=== PATIENT | male | born 1965 | race Caucasian/White ===

== ENCOUNTER 2017-09-19 10:39 | Inpatient (IN) | payer OTHER ==
--- NOTE | 2017-09-16 08:36 | HPE ---
DATE OF ADMISSION: 09/19/2017 ATTENDING PHYSICIAN: Dr. Rao CHIEF COMPLAINT: Neck pain, pain radiating to his upper extremities. HISTORY: This a pleasant 52-year-old male patient with ongoing neck pain related to a work-related incident. He continues have pain with normal day-to-day activities who has failed to improve with conservative management to include therapy and injections. He continues have troubles with normal day-to-day activities and work-related activities. Mainly gets numbness and tingling to his right upper extremity, occasionally into his left upper extremity. Has increased pain and symptoms in his upper extremities with neck range of motion. He has elected for surgery for his continued symptoms. He has consented for an anterior cervical decompression and fusion C4-5 and C5-[address] Rao with the use of iliac crest graft. X-rays of his cervical spine notable for degenerative changes most significant at C4-5 and C5-6, and a lesser degree at C3-4 and C6-7. MRI is notable for moderate cord deformity at C5-6, lesser degree at C4-5. There is spinal stenosis at C5-6. There are degenerative changes at C3-4 and C6-7. Medical optimization Mary Eli. ALLERGIES: NO KNOWN DRUG ALLERGIES. CURRENT MEDICATIONS: - duloxetine 30 mg one tablet at bedtime - gabapentin 300 mg one tablet twice a day - tizanidine 4 mg one tablet three times a day as needed - Prilosec 20 mg one tablet once per day - Benicar 40 mg one tablet once per day - Zyrtec 10 mg one tablet once a day as needed - metoprolol 25 mg one tablet once per day - aspirin 325 mg one tablet every day (He will discontinue that 4-5 days prior to surgery.) - Lipitor 10 mg one tablet once per day - xnzs-epd-xiytbhj vitamin D - mncu-vzf-eoqrdtd allergy relief with Sudafed - He also takes cilostazol 50 mg one tablet twice a day (He will discontinue that today.) MEDICAL HISTORY: Includes hypertension, elevated lipids, peripheral artery occlusion disease, cervical spinal stenosis, cervical degenerative disc disease, upper extremity radiculopathy. Exam today reveals alert, well-nourished, well-developed male patient. Neck is supple without adenopathy or jugular venous distention (JVD). Spurling's is positive on exam. The skin is intact around the neck. Vazquez's is negative. Deep tendon reflexes are trace in the upper extremities. Lungs are clear to auscultation without rales or wheeze. Heart regular rate and rhythm. Abdomen: Bowel sounds are present. His gait is not wide-based. Additional studies: Nerve conduction studies notable for an old right-sided C6-7 radiculopathy noted on his nerve studies. Current vital signs: Weight 200 pounds. Height 5 foot 11. Temperature 99.0. Blood pressure 120/70. Pulse 120. Respirations 18. REVIEW OF SYSTEMS: Denies any recent urinary tract infection (UTI) symptoms. Denies loss of bowel or bladder control. He has noted last night he did have one shaking chill but he has not noted any cough and no discharge from his nose and no productive cough. No chest pain. No shortness breath. No difficulty breathing. He has felt warm all day. Denies any nausea or vomiting. Persistent pain in his neck that radiates mainly into his right upper extremity but also, occasionally into his left upper extremity. SOCIAL HISTORY: He has continued to work on quitting smoking. He plans to quit smoking today. He does occasionally use alcohol. 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 LABORATORY DATA: Hemoglobin 17. Glucose 119. BUN 15. Creatinine 1.5. Sodium 136. Potassium 4.2. PAST SURGICAL HISTORY: Includes a hernia repair, tonsillectomy, bilateral hip surgery and atrial bypass surgery. IMPRESSION: Cervical spinal stenosis and cervical degenerative disc disease, upper extremity radiculopathy related to a work-related incident. PLAN: He has consented for an anterior cervical decompression and fusion C4-5, C5-6 with the use of iliac crest graft and titanium cages by Dr. Roa.
[~2017-09-19] VITALS: Ht 180.3 cm; Wt 95.1 kg
[~2017-09-19 10:39] MED LIST: /CELE20CA OR; /DULO30CA OR; /LOR25TA PO; /PREG50CA PO; ASPI1TAB20 PO; ASPI81TA21 PO; BENI20TA11 OR; CETI10TA OR; CILO50TA PO; CLOTR1CR TOP; DULO1CAP2 PO; GABA-282 PO; HYDR-2808 PO; METH750T OR; METO1TAB32 PO; METO50TA4 OR; NABUMETONE PO; OMEP20TA7 OR; OXYC5CAP2 PO; TIZA2TA PO; TRAM50TA2 OR; VITA1CAP40 PO; [UNRECOGNIZED DRUG - CODE] TOP
[2017-09-19] MEDS ORDERED: PREGABALIN 75 MG CAP(LYRICA) PO ONE (11:00)
[2017-09-19] MEDS ORDERED: PERCOCET 5MG/325MG TAB PO ONE (11:00)
[2017-09-19] MEDS ORDERED: LR 1,000 ML IV ONE (11:00)
[2017-09-19] MEDS ORDERED: LIDOCAINE 1% MDV 20ML VIAL SQ PRN (11:00)
[2017-09-19] MEDS ORDERED: BUPIVACAINE/EPIN 0.25% 30 ML VIAL As Ordered ONE (15:38)
[2017-09-19] MEDS ORDERED: THROMBIN SOLN 20,000 UNITS KIT As Ordered ONE (15:38)
[2017-09-19] MEDS ORDERED: LIDOCAINE W/EPINEPHRINE 1% 20ML VIAL As Ordered ONE (15:39)
[2017-09-19] MEDS ORDERED: BACITRACIN PWD 50,000 UNITS VIAL As Ordered ONE (15:39)
[2017-09-19] MEDS ORDERED: MIDAZOLAM INJ 2 MG/2 ML VIAL (J2250) As Ordered ONE (16:08)
[2017-09-19] MEDS ORDERED: fentaNYL 250 MCG/5 ML INJECTION (J3010) As Ordered ONE (16:08)
[2017-09-19] MEDS ORDERED: PROPOFOL 200 MG/20 ML VIAL As Ordered ONE (16:44)
[2017-09-19] MEDS ORDERED: LIDOCAINE 2% INJ 100 MG/5 ML SDV (FOR ANES.) As Ordered ONE (16:45)
[2017-09-19] MEDS ORDERED: ONDANSETRON 4MG/2ML VIAL (J2405) As Ordered ONE (16:45)
[2017-09-19] MEDS ORDERED: PHENYLephrine HCL 500 MCG/5 ML (100MCG/ML) SYRINGE (J2370) As Ordered ONE (16:45)
[2017-09-19] MEDS ORDERED: NEOSTIGMINE 10 MG/10 ML VIAL (J2710) As Ordered ONE (16:45)
[2017-09-19] MEDS ORDERED: GLYCOPYRROLATE INJ 0.2 MG/ML 2 ML VIAL As Ordered ONE (16:45)
[2017-09-19] MEDS ORDERED: METOCLOPRAMIDE INJ 10MG/2ML VIAL (J2765) As Ordered ONE (16:45)
[2017-09-19] MEDS ORDERED: PHENYLEPHRINE INJ 10MG/ML VIAL (J2370) As Ordered ONE (16:52)
[2017-09-19] MEDS ORDERED: ROCURONIUM BROMIDE 50 MG/5 ML VIAL/SYRINGE As Ordered ONE (17:57)
--- NOTE | 2017-09-19 19:24 | REP ---
Cervical spine: Intraoperative, two views. History: Fusion. Findings: Initial lateral cross-table radiograph time stamped 5:41 p.m. demonstrates orotracheal tube in place and a metallic intraoperative probe at the anterior aspect of this C5-6 intervertebral disc. A second film time stamped 7:09 p.m. demonstrates ventral discectomy and fusion plating across the C4-5 and C5-6 intervertebral discs in good position. Signed by Conrado Richardson MD 09/19/2017 07:49 P
[2017-09-19] MEDS ORDERED: MORPHINE 2 MG/ML 1ML SYRINGE IV PRN (19:45)
[2017-09-19] MEDS ORDERED: ONDANSETRON 4MG/2ML VIAL (J2405) IV PRN (19:45)
[2017-09-19] MEDS ORDERED: PERCOCET 5MG/325MG TAB PO PRN (19:45)
[2017-09-19] MEDS ORDERED: tiZANidine 4 MG TAB PO PRN (19:45)
[2017-09-19] MEDS ORDERED: LR 1,000 ML IV SCH (19:45)
[2017-09-19] MEDS ORDERED: fentaNYL 100 MCG/2 ML INJECTION (J3010) IV PRN (19:45)
[2017-09-19] MEDS ORDERED: ACETAMINOPHEN TAB 650MG DOSE (2X325MG) PO PRN (19:45)
[2017-09-19] MEDS ORDERED: D5W/0.45% SODIUM CHLORIDE 1,000 ML IV SCH (19:45)
[2017-09-19] MEDS ORDERED: PROMETHAZINE INJ 25 MG/ML VIAL (J2550) IV PRN (19:45)
[2017-09-19] MEDS ORDERED: HYDROmorphone HCL 1 MG/ML SYRINGE (J1170) IV PRN (20:00)
[2017-09-19 20:30] VITALS: BP 142/80
[2017-09-19] MEDS: GABAPENTIN 300 MG CAP PO SCH (21:00)
[2017-09-19 21:30] VITALS: BP 137/72
[2017-09-19 22:30] VITALS: BP 138/70
[2017-09-19 23:30] VITALS: BP 135/68
[2017-09-20] MEDS: PERCOCET 5MG/325MG TAB PO PRN ×3 (01:12→10:29)
[2017-09-20 02:00] VITALS: BP 152/75
[2017-09-20 06:00] VITALS: BP 150/68
[2017-09-20] MEDS ORDERED: PERC5TAB12 PO (08:04)
[2017-09-20] MEDS: GABAPENTIN 300 MG CAP PO SCH (08:44)
[2017-09-20 08:47] VITALS: BP 150/68
[2017-09-20] MEDS ORDERED: ASPIRIN 325 MG TAB PO SCH (09:00)
[2017-09-20] MEDS ORDERED: OLMESARTAN MEDOXOMIL 20 MG TAB (BENICAR) PO SCH (09:00)
[2017-09-20] MEDS ORDERED: METAMUCIL (PSYLLIUM) PACKET PO SCH (09:00)
[2017-09-20] MEDS ORDERED: ASCORBIC ACID 500 MG TAB PO SCH (09:00)
[2017-09-20] MEDS ORDERED: METOPROLOL SUCC *XL* 25MG TAB (TopROL *XL*) PO SCH (09:00)
[2017-09-20] MEDS ORDERED: CETIRIZINE (ZyrTEC) 10 MG TAB PO SCH (09:00)
[2017-09-20] MEDS ORDERED: OMEPRAZOLE 20 MG CAP PO SCH (09:00)
[2017-09-20] MEDS ORDERED: ATORVASTATIN 10 MG TAB PO SCH (09:00)
--- NOTE | 2017-09-20 17:45 | RO ---
DATE OF PROCEDURE: 09/19/2017 PREOPERATIVE DIAGNOSIS: Cervical spinal stenosis with right upper extremity radiculopathy and question of myelopathy, defective levels include C5-6 worse level and C4-5. POSTOPERATIVE DIAGNOSIS: Cervical spinal stenosis with right upper extremity radiculopathy and question of myelopathy, defective levels include C5-6 worse level and C4-5. PROCEDURE Anterior cervical decompression and fusion at C5-6 including decompression of the thecal sac and nerve roots and debridement and squaring of the endplates, election of bone graft, removal of the uncinate processes in preparation for fusion, included the removal of the posterior longitudinal ligament, additional level C4-5, application of intervertebral interbody mechanical device at C5-6 and C4-5, harvest and use of local autograft for spine surgery at C5-6 and C4-5, application of anterior cervical instrumentation, three segments, C4, C5 and C6. SURGEON: Dr. Minh Rao [employer] MANAGER: Siddharth Thompson, KIM ANESTHESIA: General. ESTIMATED BLOOD LOSS: Less than 15 mL, replaced with crystalloid. No complications. INDICATIONS: Discomfort radiating into the right upper extremity, neck discomfort, severe cervical spinal stenosis appreciable on MRI at C5-6 and to a lesser degree C4-5. The patient has elected for operative intervention. Consent reviewed in detail with the patient, including a amish discussion of the pathology involved, the procedure proposed, alternatives including doing nothing , risks including but not limited to pain, failure, infection, bleeding blood loss , incomplete relief of symptoms, need for additional surgery, swallowing trouble, hoarseness and other issues. I specifically talked with the patient about the need to continue to be cigarette free. COMPONENTS USED: Include the 4 cross titanium cage system, size 6 nonlordotic utilized at C6-7, size 6 nonlordotic utilized at C5-6, and size 6 lordotic utilized at C4-5. DePuy [place] plate size 30 mm spanning C4-C6, 15 mm screws at C4 and C6 and 14 mm screws times two at C5. 5 mL demineralized bone matrix putty. DESCRIPTION OF PROCEDURE: Identified in the holding area, site and side verified, brought to the operating room. General endotracheal anesthesia was administered, positioned for exposure of the cervical spine for anterior cervical decompression and fusion. Head halter traction 7 pounds was utilized, shoulders taped gently at the side, bump between the shoulder blades. Once I and the family reunification specialist were comfortable with the patient's positioning, we began the surgical procedure. Mr. Thompson stood on the patient's left side, I on the patient's right side for a right-sided approach. The length of the incision was 2.5 fingerbreadths based on palpable landmarks and palpation of the clavicle. Once he was sterilely prepped and draped and incision drawn, I infiltrated 1% lidocaine with epinephrine in the line of the incision. The incision was made with a #10 blade knife, developed down through skin and subcuticular tissues to platysma muscle. Platysma was divided perpendicular to its fibers, and the omohyoid was identified as well as the sternocleidomastoid. The omohyoid was elevated and divided to allow for exposure. The dissection continued medial to the carotid sheath which was identified as well as palpated. The dissection continued elevating the prevertebral fascia and several leaves protecting the esophagus. The large disc osteophyte complex at C5-6 was first to be palpated and identified. I placed a bayonet spinal needle at C5-6, and we obtained a cross-table lateral x-ray to verify our level. Next, once this was done, prior to removal of the spinal needle, I utilized monopolar cautery to elevate the longus coli muscle around through C5-6 and expose circumferential the C5-6 disc. Mr. Thompson, during this time, utilized S retractors to assist with the exposure. Once this was accomplished, I continued the dissection, elevating the longus coli musculature at its medial aspect superiorly through the C4 level bilaterally. Next, once this was accomplished, distraction pins were placed at C5-6, and I distracted across the disc annulus. I placed the Shadow-Line retractor. I opened the annulus with an #11 blade, removed disc material. I utilized curved curettes to remove cartilaginous endplates, ensuring that they were cleared and denuded. This left cortical endplate. Next, I utilized the oval bur to square the cortical endplate. This involved, removing some of the cortical bone, including debridement and squaring of the uncinate processes. These bone millings were collected using a silver curette and retained. Next, I encountered the posterior longitudinal ligament, which was elevated with curved curettes and removed with #2 and #1 Kerrisons, exposing the thecal sac. The thecal sac was significantly decompressed as well as the subuncinate space, decompressing the nerve root. Next, I utilized the rasp followed by the sizing device; I predicted a size 6 nonlordotic titanium cage. Next, this was obtained, it was packed with the bur millings mixed with demineralized bone matrix putty and implanted, tamped into place. Next, we shifted the retractors up one level and removed distraction pins from C6, plugged the hole with wax, distracted across C4-5, opened the annulus in a similar fashion and removed disc material and cartilaginous endplate similar fashion, squared the endplates and removed the uncinate processes. Using the oval bur, collected bur millings for bone graft. The PLL was identified, elevated and removed in a similar fashion, exposing thecal sac. Next, rasps were utilized, followed by the sizing device. At the C4-5 level, I preferred a lordotic size 6 large cage. This was mixed with bur millings, mixed with demineralized bone matrix putty and implanted. Next, once this was accomplished, I removed distraction pins from C4-5, and I utilized the oval bur with Mr. Thompson helping with exposure to contour the anterior vertebral bodies to allow plate placement. I selected a 30 mm plate and secured the plate with the appropriate 15 mm and 14 mm screws. I locked the plate into place, I irrigated, inspected for bleeding. No active bleeding was appreciated. Cross-table lateral x-ray was taken to verify plate placement. Once this was accomplished, the wound was closed with interrupted stitch to platysma, deep dermis. Dermabond utilized on the skin. Patient extubated, a collar was applied, patient moved to recovery room in good condition, appreciated to be conscious, conversant and moving all four extremities in the recovery room. KYRA
[2017-09-20] MEDS ORDERED: DULoxetine 30 MG CAP (CYMBALTA) PO SCH (21:00)
--- NOTE | 2017-09-27 10:07 | DSES ---
DATE OF ADMISSION: 09/19/2017 DATE OF DISCHARGE: 09/20/2017 ADMISSION DIAGNOSES: Cervical spinal stenosis C4-5, C5-6. Right upper extremity radiculopathy. Question of myelopathy. OTHER DIAGNOSES: Hypertension. Elevated lipids. Peripheral artery disease. DISCHARGE DIAGNOSES: Cervical spinal stenosis. Right upper extremity radiculopathy. Status post anterior cervical decompression and fusion C4-5 and C5-6. OPERATION PERFORMED: Anterior cervical decompression and fusion C4-5 and C5-6. HISTORY: This is a pleasant, 52-year-old male patient with progressively worsening neck pain from a work-related injury continued to have neck pain and pain radiating to his upper extremities despite conservative therapy to include activity modification, nonsteroidal anti-inflammatory drugs (NSAIDs) and physical therapy. The studies were consistent with spinal stenosis most significantly on C4-5 and C5-6. He was admitted for anterior cervical decompression and fusion. HOSPITAL COURSE: The patient was admitted on day of surgery. Underwent an anterior cervical decompression and fusion at C4-5 and C5-6, which was uneventful. He did well in the postoperative period. His hospital course was without complications. His pain was controlled. On day of discharge, he was doing well. He was given instructions to include but not limited to wound monitoring, activity limitations, use of the cervical collar. He will followup in our office in 7-10 days for surgical followup. He will use oral pain medications for pain control. He will resume his preoperative medications and diet. Please refer to the medical record for further details. KYRA
== END 2017-09-20 11:15 | disposition home or self-care (01) | DRG 321 ==
LOC: M OR 10:39 → M MS5PR 20:03
PROVIDERS: ADMIT Orthopaedic Surgery; ATTEND Orthopaedic Surgery
PROC: 0RB30ZZ Excision of Cervical Vertebral Disc, Open Approach (ICD-10-PCS; 2017-09-19)
PROC: 01N10ZZ Release Cervical Nerve, Open Approach (ICD-10-PCS; 2017-09-19)
PROC: 0RG20A0 Fusion of 2 or more Cervical Vertebral Joints with Interbody Fusion Device, Anterior Approach, Anterior Column, Open Approach (ICD-10-PCS; principal; 2017-09-19 12:45)
DX: M48.02 Spinal stenosis, cervical region (principal); I10 Essential (primary) hypertension; I73.9 Peripheral vascular disease, unspecified; Z79.899 Other long term (current) drug therapy; Z79.82 Long term (current) use of aspirin; F17.200 Nicotine dependence, unspecified, uncomplicated

== ENCOUNTER 2017-12-06 09:04 | Day surgery (SDC) | payer BC, OTHER ==
[2017-12-06] MEDS: NS 1,000 ML IV (10:12)
[2017-12-06] MEDS ORDERED: LIDOCAINE 2% INJ 100 MG/5 ML SDV (FOR ANES.) As Ordered (10:40)
[2017-12-06] MEDS ORDERED: PROPOFOL 200 MG/20 ML VIAL As Ordered (10:40)
== END 2017-12-06 11:40 | disposition home or self-care (01) ==
LOC: M OPP 09:04
DX: Z12.11 Encounter for screening for malignant neoplasm of colon (principal); D12.5 Benign neoplasm of sigmoid colon; K64.8 Other hemorrhoids; I10 Essential (primary) hypertension; E78.5 Hyperlipidemia, unspecified; K21.9 Gastro-esophageal reflux disease without esophagitis; R12 Heartburn; M19.90 Unspecified osteoarthritis, unspecified site; I73.9 Peripheral vascular disease, unspecified; M54.2 Cervicalgia; M54.89 Other dorsalgia; Z98.1 Arthrodesis status; F17.210 Nicotine dependence, cigarettes, uncomplicated; Z79.82 Long term (current) use of aspirin; Z79.899 Other long term (current) drug therapy; Z80.9 Family history of malignant neoplasm, unspecified
CPT/HCPCS: 45385

== ENCOUNTER → 2019-07-10 | Outpatient (REF) | payer OTHER ==
[~2019-07-10] MED LIST changes: -/CELE20CA OR; -/DULO30CA OR; -/PREG50CA PO; +ACET500T15 PO; -ASPI1TAB20 PO; +ASPI325T57 PO; +ATOR1TAB21 PO; +CELE1CAP4 OR; +CETI10CH PO; +CLOT1CRE27 TOP; -CLOTR1CR TOP; +CYMB1CAP5 OR; -DULO1CAP2 PO; +DULO1CAP5 PO; +DULO1CAP6 PO; -GABA-282 PO; +GABA-843 PO; +LOSA100T50 PO; +LYRI50CA PO; +METO1TAB33 PO; +OMEG1CAP4 PO; +OMEP20TA9 PO; +PERC5TAB12 PO; +TIZA4TAB4 PO; -VITA1CAP40 PO; +VITA50005 PO
[2019-07-10 14:05] LABS: HEMATOCRIT 48.6 % (42.0-52.0); HEMOGLOBIN 16.4 g/dl (13.5-17.5); MEAN CORPUSCULAR HEMOGLOBIN 31.7 pg (27.0-33.0); MEAN CORPUSCULAR HGB CONC 33.7 g/dl (32.0-36.5); MEAN CORPUSCULAR VOLUME 93.8 fl (80.0-96.0); PLATELET COUNT, AUTOMATED 276 10^3/uL (150-450); RED BLOOD COUNT 5.18 10^6/uL (4.30-6.10); WHITE BLOOD COUNT 12.6 10^3/uL (4.0-10.0)
[2019-07-10 14:41] LABS: ALBUMIN 4.1 GM/DL (3.2-5.2); ALT/SGPT 43 U/L (12-78); BILIRUBIN,DIRECT 0.2 MG/DL (0.0-0.2); BILIRUBIN,TOTAL 0.4 MG/DL (0.2-1.0); BLOOD UREA NITROGEN 14 MG/DL (7-18); CALCIUM LEVEL 9.6 MG/DL (8.5-10.1); CARBON DIOXIDE LEVEL 23 MEQ/L (21-32); CHLORIDE LEVEL 106 MEQ/L (98-107); CHOLESTEROL LEVEL 181 MG/DL (<200); CHOLESTEROL RISK RATIO 5.323 (<5); CREATININE FOR GFR 1.02 MG/DL (0.70-1.30); GLOMERULAR FILTRATION RATE > 60.0 (>56); GLUCOSE, FASTING 90 MG/DL (70-100); HDL CHOLESTEROL 34 MG/DL (>40); NON-HDL-C 147 MG/DL; POTASSIUM SERUM 4.2 MEQ/L (3.5-5.1); SODIUM LEVEL 139 MEQ/L (136-145); TOTAL PROTEIN 7.1 GM/DL (6.4-8.2); TRIGLYCERIDES LEVEL 546 MG/DL (<150)
== END ==
LOC: M LAB REF 12:59
PROVIDERS: ATTEND Nurse Practitioner Family
DX: I25.10 Atherosclerotic heart disease of native coronary artery without angina pectoris (principal); E78.2 Mixed hyperlipidemia; Z72.0 Tobacco use; R73.09 Other abnormal glucose; I65.23 Occlusion and stenosis of bilateral carotid arteries; I10 Essential (primary) hypertension; I73.9 Peripheral vascular disease, unspecified

== ENCOUNTER → 2019-07-24 | Outpatient (CLI) | payer BC, OTHER ==
--- NOTE | 2019-07-24 10:41 | REP ---
Low-dose lung cancer screening CT Indication: Tobacco abuse. Comparison: None Technique: Axial low-dose CT of the chest was performed and reviewed in lung reformatted images only. No intravenous contrast was administered. Findings: The upper airway is patent. There are several scattered one - 2 mm nodules within the left upper lobe, predominantly within the lung periphery. For example, there are 2 mm subpleural nodules within the left upper lobe on images 39 and 40. There is a calcified granuloma within the right lower lobe with a group of 2 mm adjacent nodules within the soft pleural space on image 80. There is no suspicious nodule. There is no consolidation. Note is made of subcarinal and right hilar calcified lymph nodes. There is no pleural or pericardial effusion. There are thoracic aortic and coronary artery calcifications. The osseous structures are intact. Impression: Lung-RADS 2. Continue annual screening with low-dose CT in 12 months. Electronically Signed by Ambar Hernandez MD 07/24/2019 10:32 A
== END ==
LOC: M RAD 09:05
PROVIDERS: ATTEND Internal Medicine Hematology & Oncology
DX: Z12.2 Encounter for screening for malignant neoplasm of respiratory organs (principal); F17.210 Nicotine dependence, cigarettes, uncomplicated

== ENCOUNTER → 2021-03-02 | Outpatient (CLI) | payer BC, OTHER ==
[~2021-03-02] MED LIST changes: +GABA-282 PO; -GABA-843 PO; -OMEG1CAP4 PO; +OMEG1CAP85 PO
--- NOTE | 2021-03-02 11:04 | REP ---
INDICATION: LUNG SCREENING. COMPARISON: 07/24/2019 TECHNIQUE: Axial noncontrast images from the thoracic inlet to the upper abdomen using low-dose lung screening technique (LDCT). As per the protocol only lung window images were sent to the read station for interpretation FINDINGS: No new abnormal nodules, masses, or opacities have developed. Grossly, the mediastinum and pulmonary tiffany are stable. Grossly the imaged upper abdomen and imaged osseous structures are stable. Stable benign mediastinal and right hilar calcifications are noted status quo. IMPRESSION: Stable lung rads category [address] of the chest <Electronically signed by Freddie Irving > 03/02/21 1100
== END ==
LOC: M RAD 10:07
PROVIDERS: ATTEND Internal Medicine Medical Oncology
DX: Z12.2 Encounter for screening for malignant neoplasm of respiratory organs (principal); F17.200 Nicotine dependence, unspecified, uncomplicated

== ENCOUNTER → 2022-04-26 | Outpatient (CLI) | payer MEDICARE, BC, OTHER ==
[~2022-04-26] MED LIST changes: +LOSA100T45 PO; -LOSA100T50 PO; +OMEP20TA2 PO; -OMEP20TA9 PO; +TIZA10TA PO; -TIZA4TAB4 PO
== END ==
LOC: M RAD 10:53
PROVIDERS: ATTEND Internal Medicine Hematology & Oncology
DX: Z12.2 Encounter for screening for malignant neoplasm of respiratory organs (principal); Z87.891 Personal history of nicotine dependence

== ENCOUNTER 2023-07-22 09:33 | Day surgery (SDC) | payer MEDICARE, BC, OTHER ==
[~2023-07-22] VITALS: Ht 180.3 cm; Wt 84.0 kg
[~2023-07-22 09:33] MED LIST changes: +AMLO1TAB24 PO; +ANOR1AER INH; +ATOR40TA75 PO; -CILO50TA PO; +CILO50TA2 PO; +DIPH-435 PO; +ERGO500029 PO; +HYDR-3490 PO; -LOSA100T45 PO; +LOSA100T46 PO; +METO1TAB7 PO; +NS 1,000 ML IV ONE; +VASC1CAP2 PO
[2023-07-22] MEDS ORDERED: LIDOCAINE 2% 100MG/5ML SDV (FOR ANES.) As Ordered ONE (10:34)
[2023-07-22] MEDS ORDERED: propofoL 200 MG/20 ML VIAL As Ordered ONE ×2 (10:34→10:49)
[2023-07-22 10:54] VITALS: TEMP 98.9
[2023-07-22 11:12] VITALS: BP 147/71; O2SAT 97
== END 2023-07-22 11:19 | disposition home or self-care (01) ==
LOC: M OPP 09:33
PROVIDERS: ATTEND Internal Medicine Gastroenterology
DX: Z86.010 Personal history of colon polyps (principal); K63.5 Polyp of colon; K57.30 Diverticulosis of large intestine without perforation or abscess without bleeding; K64.8 Other hemorrhoids; I10 Essential (primary) hypertension; E78.5 Hyperlipidemia, unspecified; K21.9 Gastro-esophageal reflux disease without esophagitis; M17.0 Bilateral primary osteoarthritis of knee; J44.9 Chronic obstructive pulmonary disease, unspecified; I73.9 Peripheral vascular disease, unspecified; M54.2 Cervicalgia; F17.210 Nicotine dependence, cigarettes, uncomplicated; Z91.048 Other nonmedicinal substance allergy status; Z79.82 Long term (current) use of aspirin; Z79.899 Other long term (current) drug therapy; Z83.3 Family history of diabetes mellitus; Z80.8 Family history of malignant neoplasm of other organs or systems; Z82.49 Family history of ischemic heart disease and other diseases of the circulatory system; Z82.3 Family history of stroke

== ENCOUNTER 2025-01-17 10:29 | Emergency (ER) | payer MEDICARE, BC ==
[~2025-01-17] VITALS: Ht 180.3 cm; Wt 78.1 kg
[~2025-01-17 10:29] MED LIST changes: +GABA-1172 PO; -GABA-282 PO; -NS 1,000 ML IV ONE; +OMEG-28 PO; -OMEG1CAP85 PO; +OMEP-611 PO; -OMEP20TA2 PO
[2025-01-17] MEDS ORDERED: TRAM50TA2 PO (12:24)
[2025-01-17] MEDS ORDERED: LOSA25TA13 PO (12:24)
[2025-01-17] MEDS ORDERED: GABA-1172 PO (12:24)
[2025-01-17] MEDS ORDERED: OSEL75CA PO (12:24)
[2025-01-17] MEDS ORDERED: CLOP75TA2 PO (12:24)
[2025-01-17] MEDS ORDERED: PANT40TA29 PO (12:24)
[2025-01-17] MEDS ORDERED: ATOR80TA59 PO (12:24)
[2025-01-17] MEDS ORDERED: TREL1AER INH (12:24)
[2025-01-17] MEDS ORDERED: PRED20TA PO (12:24)
[2025-01-17] MEDS ORDERED: FARX1TAB3 PO (12:24)
[2025-01-17] MEDS ORDERED: CETI-24 PO (12:24)
[2025-01-17] MEDS ORDERED: CEFP200T PO (12:24)
[2025-01-17] MEDS ORDERED: HOME MED LIST COMPLETE! XX SCH (12:30)
[2025-01-17 12:45] LABS: HEMATOCRIT 40.6 % (42.0-52.0); HEMOGLOBIN 13.8 g/dl (13.5-17.5); MEAN CORPUSCULAR HEMOGLOBIN 29.9 pg (27.0-33.0); MEAN CORPUSCULAR VOLUME 88.1 fl (80.0-96.0); PLATELET COUNT, AUTOMATED 306 10^3/uL (150-450); RED BLOOD COUNT 4.61 10^6/uL (4.30-6.10); WHITE BLOOD COUNT 8.4 10^3/uL (4.0-10.0)
[2025-01-17 13:03] LABS: BLOOD UREA NITROGEN 15 MG/DL (9-23); CALCIUM LEVEL 8.1 MG/DL (8.3-10.6); CARBON DIOXIDE LEVEL 27 MMOL/L (20-31); CHLORIDE LEVEL 99 MMOL/L (98-107); CREATININE FOR GFR 0.63 MG/DL (0.70-1.30); GLOMERULAR FILTRATION RATE > 60.0 (>49); GLUCOSE, FASTING 115 MG/DL (74-106); POTASSIUM SERUM 3.5 MMOL/L (3.5-5.1); SODIUM LEVEL 136 MMOL/L (136-145)
[2025-01-17 14:29] LABS: ATYPICAL LYMPH 6 % (0-5); LYMPHOCYTES 15 % (16-44); MONOCYTES 2 % (0-5); NEUTROPHILS 77 % (28-66)
[2025-01-17 14:30] LABS: PLATELET ESTIMATE NORMAL (NORMAL)
[2025-01-17 15:23] VITALS: BP 149/72; TEMP 97.4; O2SAT 95
== END 2025-01-17 15:24 | disposition home or self-care (01) ==
LOC: M ED 10:29 → EDBD 10:29 → M ED 15:24
DX: J09.X1 Influenza due to identified novel influenza A virus with pneumonia (principal); J90 Pleural effusion, not elsewhere classified; J44.9 Chronic obstructive pulmonary disease, unspecified; M54.50 Low back pain, unspecified; M54.2 Cervicalgia; I25.2 Old myocardial infarction; E78.5 Hyperlipidemia, unspecified; F17.200 Nicotine dependence, unspecified, uncomplicated; F10.10 Alcohol abuse, uncomplicated; Z91.048 Other nonmedicinal substance allergy status; Z79.2 Long term (current) use of antibiotics; Z79.02 Long term (current) use of antithrombotics/antiplatelets; Z79.899 Other long term (current) drug therapy; Z79.1 Long term (current) use of non-steroidal anti-inflammatories (NSAID)